=== PATIENT | male | born 1940 | race Caucasian/White ===

== ENCOUNTER 2023-08-14 17:12 | Emergency (ER) | payer MEDICARE, BC ==
[~2023-08-14] VITALS: Ht 175.3 cm; Wt 64.4 kg
[2023-08-14] MEDS ORDERED: DOCU100C36 PO (17:54)
[2023-08-14] MEDS ORDERED: LATA2.5D15 EACHEYE (17:54)
[2023-08-14] MEDS ORDERED: DUTA0.5C PO (17:54)
[2023-08-14] MEDS ORDERED: POTA10CA43 PO (17:54)
[2023-08-14] MEDS ORDERED: AMOX500C2 PO (17:54)
[2023-08-14] MEDS ORDERED: FURO-152 PO (17:54)
[2023-08-14] MEDS ORDERED: MULT-1045 PO (17:54)
[2023-08-14] MEDS ORDERED: TRIA60LO7 TP (17:54)
[2023-08-14] MEDS ORDERED: ASCO500C17 PO (17:54)
[2023-08-14] MEDS ORDERED: EZET10TA15 PO (17:54)
[2023-08-14] MEDS ORDERED: CLOP75TA33 PO (17:54)
[2023-08-14] MEDS ORDERED: OMEG1CAP PO (17:54)
[2023-08-14] MEDS ORDERED: VENL225T PO (17:54)
[2023-08-14] MEDS ORDERED: TRAZ-182 PO (17:54)
[2023-08-14] MEDS ORDERED: FLUT1BLS12 IH (17:54)
[2023-08-14] MEDS ORDERED: UBID50TA3 PO (17:54)
[2023-08-14] MEDS ORDERED: ATOR40TA PO (17:54)
[2023-08-14] MEDS ORDERED: ASPI81TA31 PO (17:54)
[2023-08-14] MEDS ORDERED: METO-356 PO (17:54)
[2023-08-14] MEDS: IV NORMAL SALINE 500 ML BAG IV ONE (18:14)
[2023-08-14 18:18] LABS: BASOPHILS % (AUTO) 0.2 % (0.0-2.0); EOSINOPHILS % (AUTO) 0.2 % (0.0-7.0); HEMATOCRIT 43.4 % (36.7-47.1); HEMOGLOBIN 14.8 g/dL (12.5-16.3); LYMPHOCYTES # (AUTO) 0.6 K/uL (0.8-4.8); MEAN CORPUSCULAR HEMOGLOBIN 31.5 uug (23.8-33.4); MEAN CORPUSCULAR HGB CONC 34 g/dL (32.5-36.3); MEAN CORPUSCULAR VOLUME 92.1 fL (73.0-96.2); MONOCYTES # (AUTO) 0.6 K/uL (0.1-1.30); MONOCYTES % (AUTO) 5.8 % (0.0-11.0); NEUTROPHILS % (AUTO) 87.8 % (38.5-71.5); PLATELET COUNT (AUTO) 207 K/uL (152-348); RED BLOOD CELL COUNT(AUTO) 4.71 MIL/uL (4.06-5.63); RED CELL DISTRIBUTION WIDTH 13.9 % (12.1-16.2); WHITE BLOOD COUNT (AUTO) 10.3 K/uL (3.6-10.2)
[2023-08-14 18:24] LABS: DIFFERENTIAL COMMENT 1
[2023-08-14 18:28] LABS: CALCIUM 8.8 mg/dL (8.5-10.1); CARBON DIOXIDE 23 mmol/L (21-32); CHLORIDE 100 mmol/L (98-107); GLUCOSE 116 mg/dL (74-106); SODIUM SERUM 137 mmol/L (136-145); UREA NITROGEN, BLOOD 16 mg/dL (7-18)
[2023-08-14 18:40] LABS: ALANINE AMINOTRANSFERASE 34 U/L (16-63); ALKALINE PHOSPHATASE 66 U/L (50-136); ASPARTATE AMINOTRANSFERASE 38 U/L (15-37); BILIRUBIN,TOTAL 0.8 mg/dL (0.2-1.0); NT-PRO BNP 976 pg/mL (0-125)
[2023-08-14 18:41] LABS: ALBUMIN 2.5 g/dL (3.4-5.0); C-REACTIVE PROTEIN 21.38 mg/dL (0.00-0.30)
[2023-08-14 18:44] LABS: LACTIC ACID 3.1 mmol/L (0.4-2.0)
[2023-08-14 21:17] LABS: *BILIRUBIN,URIN NEGATIVE (NEGATIVE); *BLOOD, URINE NEGATIVE (NEGATIVE); *CLARITY,URINE CLEAR (CLEAR); *COLOR,URINE YELLOW (YELLOW); *KETONES,URINE NEGATIVE (NEGATIVE); *PROTEIN,URINE 2+ (NEGATIVE); LEUKOCYTE ESTERASE ,URINE NEGATIVE (NEGATIVE); NITRITE, URINE NEGATIVE (NEGATIVE); PH,URINE 7.5 (5.0-8.0); UGLUCOSE NEGATIVE (NEGATIVE)
[2023-08-14 21:19] LABS: ABG BASE EXCESS 0.6 mmol/L (-2.0-2.0); ABG HCO3 20.4 mmol/L (22.0-26.0); ABG PCO2 21.9 mmHg (35.0-48.0); ABG PH 7.586 (7.340-7.440); ABG PO2 41.9 mmHg (75.0-100.0); ABG SITE RIGHT RADIAL; ABG TOTAL HEMOGLOBIN 14.3 G/dL (14.0-18.0); AaDO2 86.4 mmHg; COHb 1.2 % (0.0-3.9); O2Hb 82.2 % (94.0-97.0)
[2023-08-14] MEDS ORDERED: levoFLOXacin 750 MG/D5W 150 ML PIGGYBACK IV ONE (21:30)
[2023-08-14] MEDS ORDERED: CEFTRIAXONE 1 G VIAL ONE (22:03)
[2023-08-14] MEDS ORDERED: FUROSEMIDE 40 MG/4 ML VIAL ONE (22:03)
[2023-08-14] MEDS: FUROSEMIDE 40 MG/4 ML VIAL IV STA (22:10)
[2023-08-14] MEDS: CEFTRIAXONE 1 G in IV DEXTROSE 5% 50 ML IV ONE (22:10)
[2023-08-14] MEDS ORDERED: LAMIVUDINE/ZIDOVUDIN 150-300MG TABLET PO ONE (22:15)
[2023-08-14] MEDS ORDERED: CEFTRIAXONE 500 MG VIAL IM ONE (22:15)
[2023-08-14] MEDS ORDERED: DOXYCYCLINE HYCLATE 100 MG TABLET PO ONE (22:15)
[2023-08-14 22:17] VITALS: O2SAT 95
== END 2023-08-14 22:30 | disposition short-term general hospital (02) ==
LOC: ER 17:15
DX: I60.9 Nontraumatic subarachnoid hemorrhage, unspecified (principal); R53.1 Weakness; R51.9 Headache, unspecified; R09.02 Hypoxemia; R06.00 Dyspnea, unspecified; E87.3 Alkalosis; I50.9 Heart failure, unspecified; A41.9 Sepsis, unspecified organism; R65.20 Severe sepsis without septic shock; F32.A Depression, unspecified; Z20.822 Contact with and (suspected) exposure to COVID-19; Z79.899 Other long term (current) drug therapy
CPT/HCPCS: 36415; 36600; 70450; 71045; 82803; 83605; 84484; 85025; 86140; 87040; 93005; A4606; A4663; J0696; J1940; J7040